=== PATIENT | male | born 2000 | race Caucasian/White ===

== ENCOUNTER 2019-06-24 12:37 | Emergency (ER) | payer OTHER ==
--- NOTE | 2019-06-24 12:55 | UC ---
Hand/Wrist HPI - HPI Summary HPI Summary: Patient's a 18-year-old [employer] student who presents complaining of discomfort to the base of his fourth metacarpal on his right, dominant hand. Patient states he woke up like this 2 days ago. Patient states he has significant pain with medial deviation of the wrist as well as full flexion and full extension. Patient denies any paresthesias. Patient has any hand weakness. Patient had any direct trauma. Patient states he was lifting weights prior to this happening. Patient states he also may have slept on it funny. Patient has not taken anything for pain. Patient has not applied ice. Patient has never had injured this before. Patient denies direct trauma. No swelling or ecchymosis. No wrist or elbow pain no other injuries or complaints. Patient's medications reviewed this visit. - History Of Current Complaint Stated Complaint: WRIST INJURY Time Seen by Provider: 06/24/19 12:54 Hx Obtained From: Patient Onset/Duration: Sudden Onset Severity Initially: Moderate Severity Currently: Mild Pain Intensity: 3 Pain Scale Used: 0-10 Numeric Character Of Pain: Sharp, Stiffness Aggravating Factor(s): Movement Alleviating Factor(s): Rest - Allergies/Home Medications Allergies/Adverse Reactions: Allergies Allergy/AdvReac Type Severity Reaction Status Date / Time No Known Allergies Allergy Verified 06/24/19 12:59 Home Medications: Home Medications NK [No Home Medications Reported] 06/24/19 [History Confirmed 06/24/19] PMH/Surg Hx/FS Hx/Imm Hx Previously Healthy: Yes - Family History Known Family History: Positive: Non-Contributory - Social History Occupation: Student Lives: Dormitory/Roommates Substance Use Type: None Have You Smoked in the Last Year: No Review of Systems All Other Systems Reviewed And Are Negative: Yes Constitutional: Positive: Negative Skin: Positive: Negative Musculoskeletal: Positive: Other: - pain dorsum hand base 4th MC Physical Exam - Summary Physical Exam Summary: Vital Signs Reviewed: Yes A+Ox3, no distress Eyes: Conjunctiva Clear ENT: Hearing grossly normal, mmmoist Neck: Positive: Supple Respiratory: Positive: No respiratory distress, No accessory muscle use Cardiovascular: 2+ radial, ulnar CBT <<2 sec Musculoskeletal Exam: + abduction shoulder +flex/ext elbow + pronate/supinate + flext/ ext ankle + TTP - point tenderness base 4th MC. pain increases at this location with full extension 4th MCP against resistance and will full flexion 5/5 MCP, DIP, PIP against resistance Pain also with lateral deviation of wrist. No crepitus no edema no ecchymosis no erythema Neurological: Positive: Alert, + sensation throughout full strength as above and gross sensation Psychological: Positive: Normal Response To examiner Skin: Positive: no rash, no ecchymosis, no skin defects in hand/wrist Triage Information Reviewed: Yes Hand/Wrist Course/Dx - Course Course Of Treatment: Patient presents to urgent care for evaluation of pain as he woke up with 2 days ago. Pain is on the dorsum of the base of the fourth metacarpal. Patient denies any trauma. Patient states he was lifting weights the day prior to injury as well as may have slipped on it funny. Patient has not taken anything for pain. Patient without any direct trauma. On exam vital signs are stable. Patient with focal point tenderness at the base of the fourth minutes carpal. No crepitus. No edema or ecchymosis. Patient with full active range of motion against resistance. Pain is increased with point palpation as well as lateral deviation, extension against resistance. There is no concern for tendon or ligamentous disruption at today's exam. No concern for tenosynovitis at today' s exam. Suspect this is a focal tendinitis. No concern for fracture. A remote possibility patient could have a small bone spur causing tendon inflammation. Spoke to patient's apparent on the phone. At this time will place and splint. Ice. Anti-inflammatory elevate. Patient felt the [facility] this week. If symptoms persist or he has any changes or concerns is recommended was department for further testing and evaluation. Reviewed with patient Motrin and Tylenol dosing. Also give patient contact information for hand surgery as well as sports medicine. Recommended patient rest. Patient as well as. On the phone number comfortable in agreement with plan. All questions asked and answered. - Differential Dx/Diagnosis Provider Diagnosis: Sprain of hand, right Discharge ED - Sign-Out/Discharge Documenting (check all that apply): Patient Departure All imaging exams completed and their final reports reviewed: No Studies - Discharge Plan Condition: Stable Disposition: HOME Patient Education Materials: Hand Sprain (ED) Referrals: [facility] [Provider Group] [facility] [Provider Group] Arely Collazo MD [Medical Doctor] - Additional Instructions: -wear splint as much as possible for comfort and support -apply ice (20 min at a time) every 2-3 hours for the next 2 days -Okay to alternate ibuprofen (Advil, Motrin) 600mg and Tylenol every 3 hours for pain. Take with food. Do NOT take for more than 4-5 days -Contact [facility] to schedule a recheck this week. If you experience increased pain, swelling, numbness or any other concerns it is recommended you go to the emergency department for further evaluation and treatment - Billing Disposition and Condition Condition: STABLE Disposition: Home
== END 2019-06-24 13:27 | disposition home or self-care (01) ==
LOC: UCEAST 12:37
DX: S63.91XA Sprain of unspecified part of right wrist and hand, initial encounter (principal); X50.9XXA Other and unspecified overexertion or strenuous movements or postures, initial encounter; Y93.B3 Activity, free weights; Y92.9 Unspecified place or not applicable; Y99.8 Other external cause status
CPT/HCPCS: 99202; G0463

== ENCOUNTER 2019-09-30 11:28 | Emergency (ER) | payer OTHER ==
--- NOTE | 2019-09-30 12:06 | UC ---
Throat Pain/Nasal José Miguel HPI - HPI Summary HPI Summary: dx with non group a strep at [facility] this week---right side tonsil continues to be sore and tender continues to have fevers- - History of Current Complaint Chief Complaint: UCGeneralIllness Stated Complaint: SORE THROAT Time Seen by Provider: 09/30/19 12:00 Hx Obtained From: Patient Onset/Duration: Gradual Onset, Lasting Days - 3, Still Present Pain Intensity: 4 Pain Scale Used: 0-10 Numeric Cough: None Associated Signs & Symptoms: Positive: Fever - 99-100 - Allergies/Home Medications Allergies/Adverse Reactions: Allergies Allergy/AdvReac Type Severity Reaction Status Date / Time No Known Allergies Allergy Verified 09/30/19 11:41 Home Medications: Home Medications Guaifenesin/Pseudoephedrne HCl [Mucinex D ER 1,200-120 mg Tab] 1 tab PO DAILY WITH MEAL 09/30/19 [History Confirmed 09/30/19] Ibuprofen TAB* [Advil TAB*] 600 mg PO Q6H PRN 09/30/19 [History Confirmed ] Oxymetazoline HCl [Afrin] 0.05 % NA DAILY WITH MEAL 09/30/19 [History Confirmed 09/30/19] PMH/Surg Hx/FS Hx/Imm Hx Previously Healthy: Yes - Surgical History Surgical History: None - Family History Known Family History: Positive: Non-Contributory - Social History Occupation: Student Lives: Dormitory/Roommates Alcohol Use: Weekly Substance Use Type: None Smoking Status (MU): Never Smoked Tobacco Have You Smoked in the Last Year: No Review of Systems All Other Systems Reviewed And Are Negative: Yes Constitutional: Positive: Fever, Chills, Fatigue Skin: Positive: Negative Eyes: Positive: Negative ENT: Positive: Sore Throat Respiratory: Positive: Negative Cardiovascular: Positive: Negative Gastrointestinal: Positive: Negative Genitourinary: Positive: Negative Motor: Positive: Negative Neurovascular: Positive: Negative Musculoskeletal: Positive: Negative Neurological: Positive: Negative Psychological: Positive: Negative Is Patient Immunocompromised?: No Physical Exam Triage Information Reviewed: Yes Appearance: Well-Appearing, No Pain Distress, Well-Nourished Vital Signs: Initial Vital Signs Temp 99.1 F 09/30/19 11:36 Pulse 66 09/30/19 11:36 Resp 18 09/30/19 11:36 BP 116/66 09/30/19 11:36 Pulse Ox 100 09/30/19 11:36 Vital Signs Reviewed: Yes Eye Exam: Normal Eyes: Positive: Conjunctiva Clear ENT Exam: Normal ENT: Positive: Normal ENT inspection, Hearing grossly normal, Pharyngeal erythema, Nasal congestion, Nasal drainage, TMs normal, Tonsillar swelling - right with out evidence of abscess/peritonsillar abscess, Uvula midline. Negative: Trismus, Muffled voice, Hoarse voice, Dental tenderness, Sinus tenderness Dental Exam: Normal Neck exam: Normal Neck: Positive: Supple, Nontender, No Lymphadenopathy Respiratory Exam: Normal Respiratory: Positive: Chest non-tender, Lungs clear, Normal breath sounds, No respiratory distress, No accessory muscle use Cardiovascular Exam: Normal Cardiovascular: Positive: RRR, No Murmur, Pulses Normal, Brisk Capillary Refill Musculoskeletal Exam: Normal Musculoskeletal: Positive: Strength Intact, ROM Intact, No Edema Neurological Exam: Normal Neurological: Positive: Alert, Muscle Tone Normal Psychological Exam: Normal Skin Exam: Normal Diagnostics - Laboratory Lab Results: RST - Throat Pain/Nasal Course/Dx - Course Course Of Treatment: increase fluids, Tylenol/ibuprofen for pain, short course of steroids for inflammation clindamycin advised patient to use a probiotic supplement - Differential Dx/Diagnosis Provider Diagnosis: Tonsillitis Discharge ED - Sign-Out/Discharge Documenting (check all that apply): Patient Departure All imaging exams completed and their final reports reviewed: No Studies - Discharge Plan Condition: Stable Disposition: HOME Prescriptions: Clindamycin Cap(NF) [Clindamycin Cap 300 mg Cap(NF)] 300 mg PO QID #40 cap predniSONE TAB* [Deltasone TAB*] 50 mg PO DAILY #4 tab Patient Education Materials: Tonsillitis (ED) Referrals: [facility] [Outside] - 3 Days - Billing Disposition and Condition Condition: STABLE Disposition: Home
== END 2019-09-30 12:18 | disposition home or self-care (01) ==
LOC: UCEAST 11:28
DX: J03.90 Acute tonsillitis, unspecified (principal); R53.83 Other fatigue
CPT/HCPCS: 87651; 99212; G0463